=== PATIENT | female | born 1955 | race Caucasian/White ===

== ENCOUNTER 2017-08-07 09:59 | Day surgery (SDC) | payer BC ==
[~2017-08-07 09:59] MED LIST: CEFAZOLIN 1 GM/50 ML (PMX) 50 ML IVPB; EPHEDrine SULFATE 50 MG/5 ML SYG; SOD CHLORIDE 0.9% 1,000 ML IV
[2017-08-07] MEDS ORDERED: PROPOFOL 20 ML (12:09)
[2017-08-07] MEDS ORDERED: MIDAZOLAM 1 MG/ML 2 ML INJ (12:09)
[2017-08-07] MEDS ORDERED: ROCURONIUM 50 MG INJ (12:09)
[2017-08-07] MEDS ORDERED: ROPIVACAINE 0.5 % 30 ML VIAL (12:10)
[2017-08-07] MEDS ORDERED: METOCLOPRAMIDE 10 MG INJ (12:10)
[2017-08-07] MEDS ORDERED: ONDANSETRON 4 MG INJ ×2 (12:10→13:18)
[2017-08-07] MEDS ORDERED: KETOROLAC 30 MG INJ (12:11)
[2017-08-07] MEDS ORDERED: PHENYLephrine (100 MCG/ML) 5ML SYG (12:23)
[2017-08-07] MEDS ORDERED: CEFAZOLIN 1 GM INJ (12:26)
[2017-08-07] MEDS: BUPIVACAINE 0.25% (MPF) 30 ML INJ (12:42)
[2017-08-07] MEDS ORDERED: GLYCOPYRROLATE 0.4 MG INJ (12:46)
[2017-08-07] MEDS ORDERED: NEOSTIGMINE 3 MG/3 ML SYRINGE (12:46)
[2017-08-07] MEDS ORDERED: FENTAnyl 50 MCG/ML VIAL (13:17)
[2017-08-07] MEDS ORDERED: HYDROmorphONE (0.2 MG/ML) 10ML SYG IV ×3 (13:18→13:30)
[2017-08-07] MEDS ORDERED: ONDANSETRON 4 MG INJ IV (13:30)
[2017-08-07] MEDS ORDERED: DIAZEPAM 5 MG/ML SYG IV ×2 (13:30)
[2017-08-07] MEDS ORDERED: HYDROCODONE/APAP (5/325) TAB PO (13:30)
[2017-08-07] MEDS: FENTAnyl 50 MCG/ML VIAL IV (13:45)
[2017-08-07] MEDS: HYDROmorphONE (0.2 MG/ML) 10ML SYG IV (13:46)
== END 2017-08-07 15:48 | disposition home or self-care (01) ==
LOC: SDS 09:59
DX: K80.10 Calculus of gallbladder with chronic cholecystitis without obstruction (principal); R73.03 Prediabetes; I10 Essential (primary) hypertension
CPT/HCPCS: 47562; 82962; 88304